=== PATIENT | male | born 1990 | race Caucasian/White ===

== ENCOUNTER 2021-02-05 23:44 | Emergency (ER) | payer BC, SELFPAY ==
--- NOTE | ~2021-02-05 | XR_ITS ---
EXAMINATION: XR chest 1V portable DATE: 02/06/2021 00:37 INDICATION: Chest pain TECHNIQUE: frontal view of the chest was obtained. COMPARISON: None FINDINGS: Lung volumes are decreased. No focal airspace opacities, pulmonary edema, pleural effusion or pneumot horax. The cardiomediastinal silhouette is within normal limits for AP technique. Visualized bones an d soft tissues are unremarkable. IMPRESSION: 1. No acute cardiopulmonary disease. Reviewed, dictated and finalized at location A.
[2021-02-05 23:45] VITALS: PULSE 100
[2021-02-06 00:20] LABS: Basophils Absolute Auto 0.03 K/mm3 (0.00-0.10); Basophils Percent Auto 0.3 % (0.0-1.0); Eosinophils Absolute Auto 0.06 K/mm3 (0.02-0.50); Eosinophils Percent Auto 0.5 % (1.0-6.0); Hematocrit 43.1 % (40.0-54.0); Hemoglobin 14.4 g/dL (14.0-18.0); Immature Granulocyte Absolute 0.04 K/mm3 (0.00-0.00); Immature Granulocyte Percent A 0.4 % (0.0-0.0); Lymphocytes Absolute Auto 3.39 K/mm3 (1.10-4.50); Mean Corpuscular HGB Conc 33.4 g/dL (32.0-36.0); Mean Corpuscular Hemoglobin 27.2 pg (27.0-31.0); Mean Corpuscular Volume 81.3 fL (78.0-102.0); Mean Platelet Volume 12.1 fl (8.7-11.0); Monocytes Absolute Auto 0.48 K/mm3 (0.10-0.90); Monocytes Percent Auto 4.3 % (2.0-11.0); Neutrophils Absolute Auto 7.3 K/mm3 (1.7-7.2); Neutrophils Percent Auto 64.5 % (50.0-70.0); Platelet Count Result 228 K/mm3 (150-420); Red Cell Distribution Width 13.1 % (11.6-14.4); White Blood Count 11.3 K/mm3 (4.8-10.8)
[2021-02-06 00:29] VITALS: BP 160/97; PULSE 103; RESP 20; TEMP 35.8; O2SAT 99
--- NOTE | 2021-02-06 00:29 | ED.GENADULT ---
HPI - General Adult General Chief complaint: Chest Pain Stated complaint: chest pain Source: patient Mode of arrival: ambulatory Limitations: no limitations History of Present Illness HPI narrative: Kurt is a 30M with a PMH of obesity and a strong family history of early cardiac disease that presented to the ED with chest pain. He started to have a squeezing pain in his left chest into his shoulder an arm that waxes and wanes. It started when he was lying in bed. It was also associated with some anxiety and lightheadedness but no syncope, nausea, vomiting, or shortness of breath. Related Data Home Medications Medication Instructions Recorded Confirmed No Home Medications 02/06/21 02/06/21 Allergies Allergy/AdvReac Type Severity Reaction Status Date / Time Penicillins Allergy Unknown Verified 02/06/21 00:38 Review of Systems Constitutional: Constitutional: Reports no additional constitutional complaints Eyes: Eyes: Reports no additional eye complaints ENT: Reports system reviewed and no additional complaints, except as documented Cardiovascular: Cardiovascular: Reports as per HPI Respiratory: Respiratory: Reports no additional respiratory complaints Gastrointestinal: Gastrointestinal: Reports no additional gastrointestinal complaints Genitourinary: Genitourinary: Reports no additional male genitourinary complaints Musculoskeletal: Musculoskeletal: Reports no additional musculoskeletal complaints Integumentary/Breasts: Skin/Breast: Reports system reviewed and no additional complaints, except as docu Neurologic: Reports system reviewed and no additional complaints, except as documented Psychiatric: Psychiatric: Reports no additional psychiatric complaints Endocrine: Comments: admits anxiety with hospitals Hematologic/Lymphatic: Hematologic/Lymphatic: Reports no additional hematologic/lymphatic complaints Allergic/Immunologic: Allergic/Immunologic: Reports no additional allergic/immunologic complaints Exam Const: General: no acute distress and alert Nutritional Appearance: well nourished Orientation/consciousness: patient oriented x3 Limitations: No altered mental status HENMT: Head: normal to inspection Other: atraumatic Eyes: Conjunctivae: conjunctivae normal Pupils: Equal, round and reactive pupils present Neck: Neck: normal visual inspection Chest: Chest palpation & inspection: normal inspection of the chest Resp: Effort & Inspection: normal respiratory effort, not labored and not tachypneic Auscultation: clear to auscultation bilaterally Cardio: Rate: tachycardic Rhythm: regular rhythm Heart sounds: no murmurs GI: Inspection: non-distended GI Palp: Yes Soft to palpation, No Tenderness to palpation present (GI) and No Guarding due to palpation present (GI) Skin: General skin exam: normal color Rashes: no rashes Neuro: General: patient oriented x3, moves all extremities and CN's II-XI intact bilaterally Extrem: General: normal to inspection Psych: Appearance: grossly normal Mental Status: mental status grossly normal Course Course Emergency Course: Kurt was evaluated and given aspirin and nitro. He was also very anxious so he was given ativan which could be contributing to his tachycardia. Ordered labs, CXR and EKG. EKG showed sinus tachycardia at 119, normal axis, no ectopy but flattened T-waves in the lateral leads Pain spontaneously resolved so nitro was not given. Labs were largely unremarkable. HEART score of 2, will repeat troponin at 3 hours and discharge if normal. repeat troponin was wnl. Vital Signs Vital signs: Vital Signs Pulse Rate 100 02/05/21 23:45 Temperature 97.9 F 02/06/21 03:25 Pulse Rate 79 02/06/21 03:25 Respiratory Rate 20 02/06/21 03:25 Blood Pressure 160/90 H 02/06/21 03:25 Pulse Oximetry 96 02/06/21 03:25 Medical Decision Making Vital Signs Vital Signs: Vital Signs Pulse Rate 100 02/05/21 23:45
[2021-02-06] MEDS: ASPIRIN 81 MG CHEWABLE TABLET 324 MG PO (00:36)
[2021-02-06] MEDS: LORazepam INJ (*CRX) 2 MG/ML VIAL 0.5 MG IV PUSH (00:37)
--- NOTE | 2021-02-06 00:41 | ECG_ITS ---
Measurements Intervals [place] Rate: 119 P: 19 [place]: 181 QRS: 13 QRSD: 99 T: 95 QT: 419 QTc: 590 Interpretive Statements SINUS TACHYCARDIA INCOMPLETE RIGHT BUNDLE BRANCH BLOCK BORDERLINE ST-T WAVE ABNORMALITY- DIFFUSE LEADS BASELINE ARTIFACT- I, II, III, AVF ABNORMAL ECG Electronically Signed On 02-06-2021 8:25:00 CDT by Oliver Latham D.O.
[2021-02-06 00:52] LABS: Prothrombin Time 10.3 Seconds (9.50-12.10)
[2021-02-06 00:54] LABS: Alanine Aminotransferase 41 U/L (16-63); Albumin Level 3.3 g/dL (3.4-5.0); Alkaline Phosphatase 62 U/L (46-116); Anion Gap 11 mmol/L (8-16); Aspartate Amino Transferase 14 U/L (15-37); Bilirubin,Total 0.3 mg/dL (0.00-1.00); Blood Urea Nitrogen 18 mg/dL (7-18); Calcium 8.4 mg/dL (8.5-10.1); Carbon Dioxide 25 mmol/L (21-32); Chloride 104 mmol/L (98-108); Estimated CRCL calculation 134 ml/min; Estimated Glomerular Filt Rate > 60; Glucose 172 mg/dL (70-99); NT Pro B Type Natriuretic Pept 16 pg/mL (0-125); Osmolality Calculated 295 mOsm/kg (285-295); Potassium 3.4 mmol/L (3.5-5.1); Sodium 140 mmol/L (136-145); Total Protein 7.2 g/dL (6.4-8.2)
[2021-02-06 00:58] LABS: Thyroid Stimulating Hormone 2.08 uIU/mL (0.36-3.74); Troponin I 7.4 ng/L (0.00-60.4)
--- NOTE | 2021-02-06 01:40 | PC.NURSE ---
Pt. sleeping, VSS, mon NSR.
[2021-02-06 03:18] LABS: Troponin I 5.9 ng/L (0.00-60.4)
[2021-02-06 03:25] VITALS: BP 160/90; PULSE 79; RESP 20; TEMP 36.6; O2SAT 96
== END 2021-02-06 03:32 | disposition home or self-care (01) ==
PROVIDERS: Emergency Provider Family Medicine
DX: R07.9 Chest pain, unspecified (principal)
CPT/HCPCS: 36415; 71045; 80053; 83880; 84443; 84484; 85025; 85610; 93005; 96374; 99283; 99284; A9270; J2060

== ENCOUNTER 2021-02-19 23:21 | Emergency (ER) | payer BC, SELFPAY ==
[2021-02-19 23:25] VITALS: BP 142/106; PULSE 99; RESP 20; TEMP 36.6; O2SAT 99
--- NOTE | 2021-02-19 23:35 | ECG_ITS ---
Measurements Intervals [place] Rate: 94 P: 3 TX: 179 QRS: 7 QRSD: 92 T: 114 QT: 324 QTc: 406 Interpretive Statements SINUS RHYTHM INCOMPLETE RIGHT BUNDLE BRANCH BLOCK CONSIDER INFERIOR INFARCT, AGE INDETERMINATE BORDERLINE ST-T WAVE ABNORMALITY- LAT/HIGH LAT LEADS BASELINE ARTIFACT- V1 ABNORMAL ECG Electronically Signed On 02-20-2021 17:11:56 CDT by Oliver Latham D.O.
--- NOTE | 2021-02-19 23:47 | ED.CHESTPAIN ---
HPI - Chest Pain General Chief Complaint: Dizziness Stated Complaint: Dizzy Time Seen by Provider: 02/19/21 23:56 Source: patient Mode of arrival: ambulatory Limitations: no limitations History of Present Illness HPI narrative: 30-year-old man comes in today complaining of sudden onset anxiety and left-sided chest pain that he describes as aching that radiates to his shoulder and arm on the left. he states he was having dizziness and lightheadedness swelling in bed. He became anxious afterwards. Patient states that he has had no nausea, vomiting, syncope, shortness of breath, sweating, cough, fever or palpitations. Patient was recently laid off from his job. patient's states that he had some lower extremity edema that has improved over last 2 weeks. MD complaint: chest pain Onset (ago): hour(s) (1) Timing of current episode: constant and still present Onset: during rest Pain location: left chest Pain radiation: left arm Severity: moderate Quality: aching Relieving factors: nothing Exacerbating factors: nothing Treatment prior to arrival: aspirin ( Daily 81 mg) Risk Factors Coronary artery disease risk factors: none Thoracic aortic dissection risk factors: none Related Data Home Medications Medication Instructions Recorded Confirmed buspirone 7.5 mg PO DAILY 02/20/21 02/20/21 lisinopril 10 mg PO DAILY 02/20/21 02/20/21 Allergies Allergy/AdvReac Type Severity Reaction Status Date / Time Penicillins Allergy Unknown Verified 02/06/21 00:38 Review of Systems Review of Systems: All systems reviewed & are unremarkable except as noted in HPI and below Constitutional: Constitutional: Denies chills, Denies fever(s) and Denies weakness Eyes: Eyes: Denies change in vision and Denies photophobia ENT: Denies dysphagia, Denies nasal congestion and Denies sore throat Cardiovascular: Cardiovascular: Reports chest pain and Reports radiating jaw, neck or arm pain Respiratory: Respiratory: Denies cough, Denies dyspnea and Denies wheezing Gastrointestinal: Gastrointestinal: Denies abdominal pain, Denies nausea and Denies vomiting Genitourinary: Genitourinary: Denies hematuria, Denies dysuria and Denies urinary frequency Musculoskeletal: Musculoskeletal: Denies arthralgias and Denies joint swelling Integumentary/Breasts: Skin/Breast: Denies pruritus, Denies erythema and Denies rash Neurologic: Denies vertigo, Reports dizziness, Denies syncope, Denies focal weakness and Denies numbness Endocrine: Endocrine: Denies polydipsia and Denies polyuria Hematologic/Lymphatic: Hematologic/Lymphatic: Denies easy bleeding and Denies easy bruising Allergic/Immunologic: Allergic/Immunologic: Denies lip swelling and Denies throat swelling PMFSH Surgical History Surgical History (Updated 02/20/21 @ 00:47 by Rajat Hendricks MD) S/P cholecystectomy Social History Social History (Updated 02/20/21 @ 00:48 by Rajat Hendricks MD) Social History: Patient drinks mountain dew but denies energy drinks of any kind. Tobacco type: smokeless tobacco Alcohol intake: former Substance use: former Living arrangements: with family Exam Const: General: alert Nutritional Appearance: obese Orientation/consciousness: patient oriented x3 Limitations: no limitations Other: Anxious Eyes: Conjunctivae: conjunctivae normal Pupils: Equal, round and reactive pupils present EOM: EOMs intact bilaterally Resp: Effort & Inspection: normal respiratory effort and not labored Auscultation: clear to auscultation bilaterally, no rales, no rhonchi and no wheezes Cardio: Rate: regular rate Rhythm: regular rhythm Heart sounds: no murmurs Skin: General skin exam: normal color, no jaundice and no pallor Rashes: no rashes Neuro: General: patient oriented x3, moves all extremities, no focal motor deficits and CN's II-XI intact bilaterally Speech: normal speech Gait exam (Neuro): Normal gait present Extrem: General: normal to i
[2021-02-20] MEDS: ASPIRIN 81 MG CHEWABLE TABLET 243 MG PO (00:15)
[2021-02-20] MEDS: NITROGLYCERIN SL 0.4 MG TABLET SUBLINGUAL (00:18)
[2021-02-20] MEDS: LORazepam (*CRX) 1 MG TABLET PO (00:20)
[2021-02-20 00:35] LABS: Basophils Absolute Auto 0.05 K/mm3 (0.00-0.10); Basophils Percent Auto 0.4 % (0.0-1.0); Eosinophils Percent Auto 0.7 % (1.0-6.0); Hematocrit 45.3 % (40.0-54.0); Hemoglobin 15.2 g/dL (14.0-18.0); Immature Granulocyte Absolute 0.07 K/mm3 (0.00-0.00); Immature Granulocyte Percent A 0.5 % (0.0-0.0); Lymphocytes Absolute Auto 3.75 K/mm3 (1.10-4.50); Lymphocytes Percent Auto 27.6 % (18.0-42.0); Mean Corpuscular HGB Conc 33.6 g/dL (32.0-36.0); Mean Corpuscular Hemoglobin 26.8 pg (27.0-31.0); Mean Corpuscular Volume 79.9 fL (78.0-102.0); Mean Platelet Volume 11.9 fl (8.7-11.0); Monocytes Absolute Auto 0.79 K/mm3 (0.10-0.90); Monocytes Percent Auto 5.8 % (2.0-11.0); Neutrophils Absolute Auto 8.9 K/mm3 (1.7-7.2); Platelet Count Result 249 K/mm3 (150-420); Red Blood Count 5.67 M/mm3 (4.70-6.10); Red Cell Distribution Width 13.1 % (11.6-14.4); White Blood Count 13.6 K/mm3 (4.8-10.8)
[2021-02-20 00:49] LABS: D Dimer 0.33 mg/L (0.19-0.50)
[2021-02-20 00:57] LABS: Alanine Aminotransferase 40 U/L (16-63); Albumin Level 3.6 g/dL (3.4-5.0); Alkaline Phosphatase 62 U/L (46-116); Anion Gap 12 mmol/L (8-16); Aspartate Amino Transferase 16 U/L (15-37); Bilirubin,Total 0.4 mg/dL (0.00-1.00); Blood Urea Nitrogen 20 mg/dL (7-18); Calcium 8.9 mg/dL (8.5-10.1); Carbon Dioxide 24 mmol/L (21-32); Chloride 102 mmol/L (98-108); Estimated CRCL calculation 169 ml/min; Estimated Glomerular Filt Rate > 60; Glucose 106 mg/dL (70-99); Osmolality Calculated 288 mOsm/kg (285-295); Potassium 3.9 mmol/L (3.5-5.1); Sodium 138 mmol/L (136-145); Total Protein 7.6 g/dL (6.4-8.2)
[2021-02-20 01:03] LABS: Troponin I 8.4 ng/L (0.00-60.4)
[2021-02-20 01:28] LABS: Add Urine Microscopic? NO; Appearance Urine Clear (Clear); Bilirubin Urine Negative (Negative); Blood Urine Negative (Negative); Color Urine Light Yellow (Yellow); Glucose Urine UA Negative (Negative); Ketones Urine Negative (Negative); Leukocyte Esterase Ur Negative LEU/UL (Negative); Nitrate Urine Negative (Negative); Protein Urine Negative (Negative); Urobilinogen Urine 0.2 mg/dL (0.2-1.0); pH Urine 5.5 (5.0-8.0)
[2021-02-20 01:34] LABS: Amphetamine Screen Urine Negative (Negative); Barbiturate Screen Urine Negative (Negative); Benzodiazepines Screen Urine Negative (Negative); Cannabinoid Screen Urine Negative (Negative); Cocaine Screen Urine Negative (Negative); Methadone Screen Urine Negative (Negative); Opiate Screen Urine Negative (Negative); Phencyclidine Screen Urine Negative (Negative)
[2021-02-20 01:50] VITALS: BP 128/72; PULSE 89; RESP 20; O2SAT 98
== END 2021-02-20 01:54 | disposition home or self-care (01) ==
PROVIDERS: Emergency Provider Emergency Medicine; PCP Nurse Practitioner
DX: R07.9 Chest pain, unspecified (principal); F41.9 Anxiety disorder, unspecified
CPT/HCPCS: 36415; 80053; 80307; 81003; 84484; 85025; 85380; 93005; 99283; 99284; A9270

== ENCOUNTER 2021-02-26 23:16 | Emergency (ER) | payer BC, SELFPAY ==
--- NOTE | ~2021-02-26 | XR_ITS ---
EXAMINATION: XR chest 2V DATE: 02/26/2021 23:37 INDICATION: Chest pain. TECHNIQUE: Frontal and lateral views of the chest were obtained on 3 radiographs. COMPARISON: Chest single view 02/06/2021 FINDINGS: The chest demonstrates clear lungs without pneumonia, pleural effusion, or pneumothorax. Th e heart size is normal. There are surgical clips in the abdomen. IMPRESSION: 1. No acute cardiopulmonary disease. Reviewed, dictated and finalized at location A.
[2021-02-26 23:16] VITALS: BP 172/95; PULSE 93; RESP 20; TEMP 36.3; O2SAT 98
--- NOTE | 2021-02-26 23:18 | ECG_ITS ---
Measurements Intervals [place] Rate: 98 P: 9 [place]: 189 QRS: 11 QRSD: 97 T: 50 QT: 321 QTc: 412 Interpretive Statements SINUS RHYTHM INCOMPLETE RIGHT BUNDLE BRANCH BLOCK LOW QRS VOLTAGE IN PRECORDIAL LEADS BORDERLINE R WAVE PROGRESSION, ANTERIOR LEADS CONSIDER INFERIOR INFARCT, AGE INDETERMINATE BASELINE WANDER- V1-V3 ABNORMAL ECG Electronically Signed On 02-27-2021 6:30:19 CDT by Oliver Latham D.O.
--- NOTE | 2021-02-26 23:23 | ED.CHESTPAIN ---
HPI - Chest Pain General Chief Complaint: Chest Pain Stated Complaint: Chest pain Time Seen by Provider: 02/26/21 23:23 Source: patient and RN notes reviewed Mode of arrival: EMS Limitations: no limitations History of Present Illness HPI narrative: 30-year-old male has been having chest pain intermittently all day. The worst it has been is 4/10. His chest pain has always been at rest. In the past few days when he is exerting himself he has not had chest pain. Initially he said he has not been short of breath with then his said that he called her and 1 time he was short of breath. He denies any nausea vomiting. He denies any diaphoresis. He has been having angina and has seen a guide travel. He is post be seen this week for an echo and may be scheduled for cardiac catheterization. He was supposed to get some nitroglycerin but it was sent to the wrong pharmacy. complaint: chest pain Onset (ago): day(s) (12) Timing of current episode: episodic Prior episodes: Yes Onset: during rest Pain location: substernal Pain radiation: left arm Pain scale (0-10): 4 Quality: tightness Relieving factors: nothing Exacerbating factors: nothing Associated symptoms: dyspnea ( only during 1 episode) Treatment prior to arrival: aspirin Risk Factors Coronary artery disease risk factors: smoking history (Quit), hypertension and family history of CAD before age 50 Related Data Home Medications Medication Instructions Recorded Confirmed buspirone 7.5 mg PO DAILY 02/20/21 02/20/21 lisinopril 10 mg PO DAILY 02/20/21 02/20/21 Allergies Allergy/AdvReac Type Severity Reaction Status Date / Time Penicillins Allergy Unknown Verified 02/06/21 00:38 Review of Systems Review of Systems: All systems reviewed & are unremarkable except as noted in HPI and below Constitutional: Constitutional: Denies body ache(s) and Denies chills Cardiovascular: Cardiovascular: Reports palpitations Respiratory: Respiratory: Reports no additional respiratory complaints Gastrointestinal: Gastrointestinal: Denies vomiting PMFSH Past Medical History Medical History (Updated 02/27/21 @ 00:26 by Nacho Leal MD) Anxiety Hypertension Morbid obesity Surgical History Surgical History S/P cholecystectomy Social History Social History (Updated 02/20/21 @ 00:48 by Rajat Hendricks MD) Social History: Patient drinks mountain dew but denies energy drinks of any kind. Tobacco type: smokeless tobacco Alcohol intake: former Substance use: former Exam Const: General: cooperative, healthy appearing, comfortable and no acute distress Nutritional Appearance: obese morbidly obese Orientation/consciousness: oriented to person and patient oriented x3 Limitations: no limitations HENMT: Head: normal to inspection Ears: external ears normal Face and sinus: normal facial exam Mouth: Yes moist mucous membranes Eyes: Conjunctivae: conjunctivae normal Pupils: Equal, round and reactive pupils present EOM: EOMs intact bilaterally Neck: Neck: normal visual inspection Resp: Effort & Inspection: normal respiratory effort Auscultation: clear to auscultation bilaterally Cardio: Rate: regular rate Rhythm: regular rhythm GI: GI Palp: Yes Soft to palpation and No Tenderness to palpation present (GI) Auscultation: normal bowel sounds Back/Spine/Pelvis: Cervical Spine: cervical ROM normal Thoracic/Lumbar Spine: thoraco-lumbar ROM normal Skin: General skin exam: normal color Rashes: no rashes Neuro: General: patient oriented x3, moves all extremities and no focal motor deficits Speech: normal speech Gait exam (Neuro): Normal gait present Extrem: General: normal to inspection and no clubbing, cyanosis or edema Psych: Appearance: grossly normal and well kempt Mental Status: mental status grossly normal Affect: normal affect Attitude: cooperative Thought content: Yes Normal thought [place]
[2021-02-26 23:47] LABS: Basophils Absolute Auto 0.04 K/mm3 (0.00-0.10); Basophils Percent Auto 0.3 % (0.0-1.0); Eosinophils Absolute Auto 0.06 K/mm3 (0.02-0.50); Eosinophils Percent Auto 0.5 % (1.0-6.0); Hematocrit 47.2 % (40.0-54.0); Hemoglobin 15.9 g/dL (14.0-18.0); Immature Granulocyte Absolute 0.04 K/mm3 (0.00-0.00); Immature Granulocyte Percent A 0.3 % (0.0-0.0); Lymphocytes Absolute Auto 3.22 K/mm3 (1.10-4.50); Lymphocytes Percent Auto 26.1 % (18.0-42.0); Mean Corpuscular HGB Conc 33.7 g/dL (32.0-36.0); Mean Corpuscular Hemoglobin 27.2 pg (27.0-31.0); Mean Corpuscular Volume 80.7 fL (78.0-102.0); Mean Platelet Volume 11.6 fl (8.7-11.0); Monocytes Absolute Auto 0.58 K/mm3 (0.10-0.90); Monocytes Percent Auto 4.7 % (2.0-11.0); Neutrophils Absolute Auto 8.4 K/mm3 (1.7-7.2); Neutrophils Percent Auto 68.1 % (50.0-70.0); Platelet Count Result 241 K/mm3 (150-420); Red Blood Count 5.85 M/mm3 (4.70-6.10); Red Cell Distribution Width 12.6 % (11.6-14.4); White Blood Count 12.3 K/mm3 (4.8-10.8)
[2021-02-26 23:53] VITALS: PULSE 98
[2021-02-27 00:08] LABS: Alanine Aminotransferase 33 U/L (16-63); Albumin Level 3.7 g/dL (3.4-5.0); Alkaline Phosphatase 61 U/L (46-116); Anion Gap 10 mmol/L (8-16); Aspartate Amino Transferase 14 U/L (15-37); Bilirubin,Total 0.3 mg/dL (0.00-1.00); Blood Urea Nitrogen 18 mg/dL (7-18); Calcium 9.2 mg/dL (8.5-10.1); Carbon Dioxide 25 mmol/L (21-32); Chloride 101 mmol/L (98-108); Estimated CRCL calculation 162 ml/min; Estimated Glomerular Filt Rate > 60; Glucose 98 mg/dL (70-99); Osmolality Calculated 283 mOsm/kg (285-295); Potassium 3.8 mmol/L (3.5-5.1); Sodium 136 mmol/L (136-145); Total Protein 7.7 g/dL (6.4-8.2); Troponin I 9.5 ng/L (0.00-60.4)
[2021-02-27] MEDS: ALPRAZolam (*CRX) 0.5 MG TABLET PO (00:08)
--- NOTE | 2021-02-27 00:08 | PC.NURSE ---
[id number] female in room came to desk , stating pt feels like he is having a panic attack. pt states heart is racing . reassurrance given. erp notified of same.
[2021-02-27 00:45] VITALS: BP 138/81; PULSE 90; RESP 20; TEMP 36.9; O2SAT 97
== END 2021-02-27 00:30 | disposition home or self-care (01) ==
PROVIDERS: Emergency Provider Emergency Medicine; PCP Nurse Practitioner
DX: I20.8 Other forms of angina pectoris (principal)
CPT/HCPCS: 36415; 71046; 80053; 83735; 84484; 85025; 93005; 99283; 99284; A9270

== ENCOUNTER 2022-02-19 17:45 | Emergency (ER) | payer SELFPAY ==
--- NOTE | ~2022-02-19 | XR_ITS ---
EXAM: XR ankle LT min 3V DATE: 02/19/2022 18:15 HISTORY: left ankle pain and a sprain. lateral portion . COMPARISON: None available. FINDINGS: Normal mineralization. No fracture or dislocation. No lytic or blastic lesion. Degenerativ e tibiotalar and midfoot changes. Plantar and Achilles enthesopathy. No erosion or periosteal change. Soft tissues within normal limits. IMPRESSION: No acute osseous finding in the left ankle. Reviewed, dictated and finalized at location K.
--- NOTE | 2022-02-19 18:15 | ED.GENADULT ---
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 this morning whereby he twisted his left ankle and felt a popping sound. He has been ambulatory since that time but with significant difficulty secondary to pain of the left ankle. No falls. No nausea or vomiting. No back pain or neck pain or headache. No motor or sensory deficits. Able to walk with a limp. He has not taken any oral pain medications for this since the event. Comorbidities include anxiety disorder, obesity, and hypertension. Related Data Home Medications Medication Instructions Recorded Confirmed lisinopril 10 mg tablet 20 mg PO DAILY 02/20/21 02/19/22 hydroxyzine HCl 25 mg tablet 1 tablet PO DAILY 02/19/22 02/19/22 Allergies Allergy/AdvReac Type Severity Reaction Status Date / Time Penicillins Allergy Unknown Verified 02/06/21 00:38 Review of Systems Review of Systems: All systems reviewed & are unremarkable except as noted in HPI and below Constitutional: Constitutional: Reports no additional constitutional complaints, Denies anorexia, Denies body ache(s), Denies chills, Denies excessive sweating, Denies fatigue, Denies fever(s), Denies frequent falls, Denies headache(s), Denies malaise and Denies poor appetite Eyes: Eyes: Reports no additional eye complaints, Denies blurry vision, Denies change in vision, Denies irritation, Denies itchy eyes and Denies photophobia ENT: Reports system reviewed and no additional complaints, except as documented, Reports Normal hearing present, Denies change in voice, Denies dysphagia, Denies vertigo, Denies dizziness, Denies ear discharge, Denies headache(s), Denies hearing loss, Denies hoarseness, Denies nasal congestion, Denies neck pain, Denies sinus pressure, Denies sore throat and Denies throat swelling Cardiovascular: Cardiovascular: Reports no additional cardiovascular complaints, Denies chest pain, Denies syncope, Denies rapid heart rate, Denies irregular heart rhythm, Denies leg edema, Denies dyspnea and Denies slow heart rate Respiratory: Respiratory: Reports no additional respiratory complaints, Denies cough, Denies dyspnea, Denies stridor and Denies wheezing Gastrointestinal: Gastrointestinal: Reports no additional gastrointestinal complaints, Denies abdominal pain, Denies melena, Denies hematochezia, Denies dysphagia, Denies diarrhea, Denies nausea and Denies vomiting Genitourinary: Genitourinary: Denies hematuria, Denies oliguria, Denies dysuria, Denies flank pain, Denies urinary frequency and Denies urinary urgency Musculoskeletal: Musculoskeletal: Reports no additional musculoskeletal complaints, Reports abnormal gait (secondary to pain in the left ankle), Denies back pain, Denies myalgias, Reports arthralgias (in left ankle), Reports joint swelling (in left ankle), Reports limited range of motion (left ankle), Denies muscle cramps, Denies muscle weakness, Denies neck pain and Denies numbness Integumentary/Breasts: Skin/Breast: Reports system reviewed and no additional complaints, except as docu, Denies breast pain, Denies change in pigmentation, Denies pruritus, Denies erythema and Denies wounds Neurologic: Reports system reviewed and no additional complaints, except as documented, Reports Normal hearing present, Denies Abnormal speech present, Denies abnormal gait, Denies confusion, Denies vertigo, Denies dizziness, Denies syncope, Denies frequent falls, Denies headache(s), Denies focal weakness, Denies numbness and Denies paresthesias Psychiatric: Psychiatric: Reports no additional psychiatric complaints and Denies confusion Endocrine: Endocrine: Reports no additional endocrine complaints, Denies cold intolerance, Denies excessive sweating, Denies fatigue and Denies heat intolerance Hematologic/Lympha
--- NOTE | 2022-02-19 18:30 | PC.NURSE ---
1800 pt to xray from [facility]
[2022-02-19 19:00] VITALS: BP 134/70; PULSE 108; RESP 20; TEMP 36.4; O2SAT 98
[2022-02-19] MEDS: IBUPROFEN 400 MG TABLET 800 MG PO (19:10)
[2022-02-19] MEDS: ACETAMINOPHEN 325 MG TABLET 650 MG PO (19:11)
[2022-02-19] MEDS: HYDROcodone/acetaminophen (*CRX) 5-325 MG TABLET 1 TAB PO (19:20)
[2022-02-19 19:31] VITALS: BP 138/74; PULSE 100; RESP 18; O2SAT 99
== END 2022-02-19 19:33 | disposition home or self-care (01) ==
PROVIDERS: Emergency Provider Emergency Medicine; PCP Nurse Practitioner
DX: S93.402A Sprain of unspecified ligament of left ankle, initial encounter (principal)
CPT/HCPCS: 73610; 99283; A9270

== ENCOUNTER 2022-11-08 14:05 | Outpatient (CLI) | payer BC, SELFPAY ==
[2022-11-08 14:21] LABS: Hemoglobin 15.7 g/dL (14.0-18.0); Mean Corpuscular HGB Conc 32.7 g/dL (32.0-36.0); Mean Corpuscular Hemoglobin 26.4 pg (27.0-31.0); Mean Corpuscular Volume 80.8 fL (78.0-102.0); Mean Platelet Volume 11.6 fl (8.7-11.0); Platelet Count Result 230 K/mm3 (150-420); Red Blood Count 5.94 M/mm3 (4.70-6.10); Red Cell Distribution Width 13.3 % (11.6-14.4); White Blood Count 10.4 K/mm3 (4.8-10.8)
[2022-11-08 15:10] LABS: Alanine Aminotransferase 56 U/L (16-63); Albumin Level 3.7 g/dL (3.4-5.0); Alkaline Phosphatase 79 U/L (46-116); Anion Gap 7 mmol/L (8-16); Aspartate Amino Transferase 29 U/L (15-37); Bilirubin,Total 0.5 mg/dL (0.00-1.00); Blood Urea Nitrogen 11 mg/dL (7-18); Calcium 9.2 mg/dL (8.5-10.1); Carbon Dioxide 30 mmol/L (21-32); Chloride 105 mmol/L (98-108); Cholesterol 163 mg/dL (0-200); Estimated Glomerular Filt Rate > 60; Glucose 104 mg/dL (70-99); HDL Direct 29 mg/dL (40-60); LDL Cholesterol Calculated 88 mg/dL (<130); Osmolality Calculated 293 mOsm/kg (285-295); Potassium 4.5 mmol/L (3.5-5.1); Sodium 142 mmol/L (136-145); Total Protein 7.5 g/dL (6.4-8.2); Triglycerides 228 mg/dL (0-150)
== END 2022-11-08 14:06 | disposition home or self-care (01) ==
LOC: CHSLAB 14:07
PROVIDERS: PCP Family Medicine; Visit Provider Family Medicine
DX: Z00.00 Encounter for general adult medical examination without abnormal findings (principal)
CPT/HCPCS: 36415; 80053; 80061; 85027

== ENCOUNTER 2022-11-19 17:03 | Outpatient (RCR) | payer BC, SELFPAY ==
--- NOTE | 2022-11-19 18:01 | PTOPEVAL1 ---
Assessment and note entered by Evelyn Lord, PT Evaluation Information Assessment Status Evaluation Diagnosis Sciatica Onset 11/08/22 Subjective Information Kurt Patel reports he started having low back pain about 3 months ago. He reports he has had off and on pain for several years with no clear trigger that started pain. He reports pain is on the left > right lower back and buttock. He also notes that his left thigh will go numb with sitting for a long period. He has been able to treat the pain in the past with vicodin and muscle relaxers. This time, he was prescribed Meloxicam and cyclobenzipene with no change in symptoms. He was also referred to PT. 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 Reported Pain Level Pain Score 8: Self Report Assessment PT Clinical Summary Kurt Patel presents with left low back and buttock pain with an onset approximately 3 months ago. He has had low back pain in the past but it usually subsides with medication. He has difficulty with lifting, prolonged sitting, and prolonged standing which causes difficulty with his ability to work as an EMT. He objectively demonstrates decreased and painful lumbar AROM into flexion and left lateral flexion; decreased core strength; positive left straight leg raise test; decreased hamstring flexibility; and decreased functional abilities. He has decreased symptoms with lumbar extension. He will benefit from skilled PT to address these physical and functional limitations and return him to his PLOF. Plan of Care Interventions Electrical Stimulation,Hot Pack/Cold Pack,Manual Therapy,Mechanical Traction,Neuro Re-education, Patient/Caregiver Educati,Therapeutic Activities, Therapeutic Exercise PT Services Indicated Yes Treatment Frequency and 3 times a week for 12 visits Duration These treatments will address the objective and functional deficits as defined above. The patient will be advanced safely and appropriately in order for the patient to progress towards his/her prior level of function. Additional exercises will be introduced and as well as a comprehensive home exercise program upon discharge, if needed, ?to ensure carryover of functional gains achieved in the clinic. This treatment plan has been reviewed and agreement upon by the patient.
== END 2022-11-22 13:49 | disposition home or self-care (01) ==
LOC: CHSPT 17:03
PROVIDERS: PCP Family Medicine; Visit Provider Family Medicine
DX: M54.30 Sciatica, unspecified side (principal)
CPT/HCPCS: 97014; 97110; 97161; G0283

== ENCOUNTER 2023-01-02 13:40 | Outpatient (CLI) | payer BC, MEDICAID, SELFPAY ==
--- NOTE | ~2023-01-02 | XR_ITS ---
EXAMINATION: XR lumbar spine 2-3V DATE: 01/02/2023 13:59 INDICATION: Low back pain TECHNIQUE: Anteroposterior and lateral views of the lumbar spine, and cone-down lateral view of the l umbosacral junction were obtained. COMPARISON: None. FINDINGS: No fracture, dislocation, or subluxation. The vertebral body heights, alignment, and interv ertebral disc spaces are normal. The paravertebral soft tissues are unremarkable. Surgical clips in t he right upper quadrant are likely from prior cholecystectomy. IMPRESSION: 1. No acute osseous abnormality. Reviewed, dictated and finalized at location L.
== END 2023-01-02 13:41 | disposition home or self-care (01) ==
LOC: CHSIMG 13:42
PROVIDERS: PCP Family Medicine; Visit Provider Nurse Practitioner Family
DX: G89.29 Other chronic pain (principal); M54.50 Low back pain, unspecified
CPT/HCPCS: 72100

== ENCOUNTER 2023-07-28 14:19 | Emergency (ER) | payer BC, SELFPAY ==
--- NOTE | ~2023-07-28 | XR_ITS ---
XR hip RT min 3V w AP pelvis 07/28/2023 15:18 INDICATION: Pelvic pain PROCEDURE: AP pelvis and 2 views right hip COMPARISON: No prior studies for comparison. FINDINGS: Fracture, dislocation or subluxation is not identified. Sacral foramen are symmetric. The s oft tissues appear within normal limits. No foreign bodies are identified. IMPRESSION: 1: NO ACUTE BONE OR JOINT ABNORMALITY IDENTIFIED. Reviewed, dictated and finalized at location B. ING ASSOCIATE
--- NOTE | ~2023-07-28 | XR_ITS ---
XR sacrum coccyx min 2V 07/28/2023 15:18 Indication: Back pain after trauma Procedure: 3 views sacrum/coccyx Comparison: 07/28/2023 Findings: Sacral foramen are symmetric. No fracture or traumatic malalignment. Sacroiliac joints are symmetric. Impression: 1: No acute abnormality of the sacrum/coccyx. Reviewed, dictated and finalized at location B. ION HOUSEKEEPER Impression: 1: No acute abnormality of the sacrum/coccyx.
--- NOTE | ~2023-07-28 | XR_ITS ---
XR lumbar spine 2-3V 07/28/2023 15:18 Indication: Low back pain after fall Procedure: 3 views lumbar spine Comparison: 01/02/2023 Findings: Mild levocurvature of the lumbar spine. Vertebral body heights are maintained. Pedicles int act. Sacral foramen are symmetric. There are cholecystectomy clips. Impression: 1: No acute abnormality of the lumbar spine. Reviewed, dictated and finalized at location B. TY DIRECTOR WELFARE Impression: 1: No acute abnormality of the lumbar spine.
[2023-07-28 14:23] VITALS: BP 193/94; PULSE 112; RESP 21; TEMP 37.1; O2SAT 100
[2023-07-28] MEDS: CYCLOBENZAPRINE HCL 10 MG TABLET PO (14:43)
[2023-07-28] MEDS: HYDROcodone/acetaminophen (*CRX) 5-325 MG TABLET 1 TAB PO (14:43)
--- NOTE | 2023-07-28 14:49 | ED.BACK ---
HPI - Back Pain/Injury General Chief Complaint: Back Pain/Injury Stated Complaint: lower back injury Time Seen by Provider: 07/28/23 14:26 Source: patient and EMS Mode of arrival: EMS Limitations: no limitations History of Present Illness HPI Narrative: 33 years old white male, morbidly obese presents to the ED By ambulance with pain at the lower back and tailbone and right hip after missing a step while going up stairs landed on the right hip, last night. He denies other injuries. Patient had meloxicam this morning.. Related Data Home Medications Medication Instructions Recorded Confirmed hydroxyzine HCl 25 mg tablet 25 mg PO DAILY PRN Anxiety 07/28/23 07/28/23 meloxicam 15 mg tablet 15 mg PO DAILY 07/28/23 07/28/23 Allergies Allergy/AdvReac Type Severity Reaction Status Date / Time Penicillins Allergy Unknown Verified 07/28/23 14:28 Review of Systems Review of Systems: All systems reviewed & are unremarkable except as noted in HPI and below PMFSH Past Medical History Medical History Anxiety Hypertension Morbid obesity Surgical History Surgical History S/P cholecystectomy Social History Social History Social History: Patient drinks mountain dew but denies energy drinks of any kind. Smoking status: Current every day smoker Tobacco type: cigarettes and smokeless tobacco Alcohol intake: former Substance use: former Living arrangements: with family Exam Narrative: General appearance: Well-developed, well-nourished Skin: Normal color Head: Normocephalic, nontraumatic Eyes: Clear conjunctiva ENT: Oropharynx normal, ears normal, nose normal Neck: Supple, nontender Chest and respiratory: Airway patent, no respiratory distress, no accessory muscle use Heart: Regular rate/rhythm Abdomen: Soft, nontender, no organomegaly, quiet bowel sounds Vascular: Normal peripheral pulses, normal capillary refill. Musculoskeletal: Diffuse tenderness along the lumbar spine, no bruises, no swelling or rash, slight limited range of motion of the right hip was diffuse tenderness. Neurologic: Alert and oriented ?3, BENEFITS SPECIALIST RECRUITER is normal as tested, no gross motor deficit Course Vital Signs Vital signs: Vital Signs Temperature 37.1 C 07/28/23 14:23 Pulse Rate 112 H 07/28/23 14:23 Respiratory Rate 21 H 07/28/23 14:23 Blood Pressure 193/94 H 07/28/23 14:23 Pulse Oximetry 100 07/28/23 14:23 Oxygen Delivery Room Air 07/28/23 14:23 Temperature 37.1 C 07/28/23 14:23 Pulse Rate 112 H 07/28/23 14:23 Respiratory Rate 21 H 07/28/23 14:23 Blood Pressure 193/94 H 07/28/23 14:23 Pulse Oximetry 100 07/28/23 14:23 Oxygen Delivery Room Air 07/28/23 14:23 MDM - Back Pain/Injury MDM Narrative Medical decision making narrative: patient missed a step landed on the right hip last night Physical examination as above, vital signs show blood pressure of 193/94, heart rate of 112 Differential diagnosis contusion, sprain, strain, fracture Workup today included x-ray of the lumbar spine, sacrum and coccyx, right hip and pelvis which showed no acute abnormalities. Contusion is my concern. Patient currently on meloxicam 15 mg once a day, my recommendation to continue meloxicam plus Flexeril and lower back physical therapy and exercise. Differential Diagnosis Differential diagnosis: Likely other ( Hip contusion, lower back contusion) Imaging Data Radiologist's impression: Impressions Lumbar Spine X-Ray 07/28/23 15:20 Impression: 1: No acute abnor
[2023-07-28 15:59] VITALS: BP 184/82; PULSE 86; RESP 22; TEMP 37.2; O2SAT 98
[2023-07-28 16:08] VITALS: BP 177/102; PULSE 84; RESP 20; TEMP 37.1; O2SAT 97
== END 2023-07-28 16:11 | disposition home or self-care (01) ==
PROVIDERS: Emergency Provider Emergency Medicine; PCP Family Medicine
DX: M54.50 Low back pain, unspecified (principal); S70.01XA Contusion of right hip, initial encounter; I10 Essential (primary) hypertension; F17.210 Nicotine dependence, cigarettes, uncomplicated; Z79.891 Long term (current) use of opiate analgesic; W10.9XXA Fall (on) (from) unspecified stairs and steps, initial encounter
CPT/HCPCS: 72100; 72220; 73502; 99284; A9270

== ENCOUNTER 2023-08-26 07:32 | Outpatient (CLI) | payer BC, MEDICAID, SELFPAY ==
[2023-08-26 07:56] LABS: Hemoglobin A1C 5.5 % (<5.7)
[2023-08-31 12:31] LABS: Testosterone Free 32.9 pg/mL (35.0-155.0); Testosterone Total 140 ng/dL (250-1100)
== END 2023-08-26 07:33 | disposition home or self-care (01) ==
LOC: CHSLAB 07:35
PROVIDERS: PCP Family Medicine; Visit Provider Family Medicine
DX: I10 Essential (primary) hypertension (principal); E11.9 Type 2 diabetes mellitus without complications
CPT/HCPCS: 36415; 83036; 84402; 84403

== ENCOUNTER 2024-09-15 09:54 | Outpatient (RCR) | payer BC, SELFPAY ==
--- NOTE | 2024-09-15 15:14 | OPREHPOC ---
Outpatient Therapy Plan of Care This is a Multidisciplinary Plan of Care that may contain components documented by all disciplines (PT, OT, and ST.) PT Problem 1 PT Problem #1 Knowledge Deficit PT Goal 1 Goal / Goal Update Independent with HEP Target Visit 2 PT Problem 2 PT Problem #2 Pain PT Goal 1 Goal / Goal Update 1. Improve pain to no more than 2 at rest. 2. Improve back index score to 20 for improved functional mobility and work activities. Target Visit 12 PT Problem 3 PT Problem #3 Impaired Range of Motion PT Goal 1 Goal / Goal Update 1. Pt to improve back flexion ROM to 70degrees 2. Improve thoracic joint mobility to 3/6 normal Target Visit 12 PT Problem 4 PT Problem #4 Impaired Strength PT Goal 1 Goal / Goal Update Improve gross shoulder strength to 4+/5 for improved mechanics and postural awareness. Target Visit 12
--- NOTE | 2024-09-15 15:14 | PTOPEVAL1 ---
Assessment and note entered by Winifred Ozuna, PT Evaluation Information Assessment Status Evaluation Diagnosis Pain in thoracic spine ICD-10 Condition Codes (PT) Pain in Thoracic Spine M54.6 Onset 08/15/24 Subjective Information Pt reports onset of thoracic region back pain one month ago when he was outside at work and thinks he may have twisted his back the wrong way. Pain is shooting in nature and radiates from central thoracic region laterally to the left side. Pain is constantly present at 5/10 and increases to 8/ 10 with bending forward vs backward, twisting, coughing/sneezing and changing positions. 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 His sleep is occasionally interrupted due to pain and he's tried ice/heat and lidocaine patches with some relief however the pain never completely goes away. Reported Pain Level Pain Score 5: Self Report Assessment PT Clinical Summary Mr. Patel is a 34 year old male presenting to physical therapy with complaints of thoracic region pain. His pain is sharp/shooting in nature and radiates laterally along his L side. His pain has been ongoing for about a month and has mildly interfered with his sleep and ability to participate in work activities despite toughing it out. He demonstrates impaired strength grossly throughout the neck and shoulders along with tenderness to palpation with central PA along the thoracic spine and radiating pain laterally to his left side. Skilled PT services indicated to reduce pain, improve joint mobility and strength to return to prior level of function and normal work activities without pain. Plan of Care Interventions Electrical Stimulation,Gait Training,Hot Pack/Cold Pack,Manual Therapy,Mechanical Traction,Neuro Re- education,Patient/Caregiver Education,Therapeutic Activities,Therapeutic Exercise,Self-Care/Home Management PT Services Indicated Yes Treatment Frequency and 2x/week for 12 visits Duration These treatments will address the objective and functional deficits as defined above. The patient will be advanced safely and appropriately in order for the patient to progress towards his/her prior level of function. Additional exercises will be introduced and as well as a comprehensive home exercise program upon discharge, if needed, ?to ensure carryover of functional gains achieved in the clinic. This treatment plan has been reviewed and agreement upon by the patient.
--- NOTE | 2024-12-10 13:25 | PTOPDC ---
Assessment and note entered by Winifred Ozuna, PT Evaluation Information Assessment Status Discharge - Pt Not Present Diagnosis Pain in thoracic spine ICD-10 Condition Codes (PT) Pain in Thoracic Spine M54.6 Onset 08/15/24 Subjective Information Pt reports onset of thoracic region back pain one month ago when he was outside at work and thinks he may have twisted his back the wrong way. Pain is shooting in nature and radiates from central thoracic region laterally to the left side. Pain is constantly present at 5/10 and increases to 8/ 10 with bending forward vs backward, twisting, coughing/sneezing and changing positions. 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 His sleep is occasionally interrupted due to pain and he's tried ice/heat and lidocaine patches with some relief however the pain never completely goes away. Assessment PT Clinical Summary Mr. Kurt Patel has attended 2 total skilled physical therapy visits addressing thoracic back pain. He has not attended physical therapy since September, was contacted and did not answer. He will be discharged from PT at this time. Plan of Care PT Services Indicated No
== END 2024-09-28 20:00 | disposition home or self-care (01) ==
LOC: CHSPT 09:54
PROVIDERS: Visit Provider Nurse Practitioner Family
DX: M54.6 Pain in thoracic spine (principal)
CPT/HCPCS: 97014; 97110; 97140; 97150; 97161; G0283

== ENCOUNTER 2024-09-28 10:37 | Outpatient (CLI) | payer BC, SELFPAY ==
[2024-09-28 10:53] LABS: Basophils Absolute Auto 0.06 K/mm3 (0.00-0.10); Basophils Percent Auto 0.7 % (0.0-1.0); Eosinophils Absolute Auto 0.14 K/mm3 (0.02-0.50); Eosinophils Percent Auto 1.6 % (1.0-6.0); Hematocrit 49.2 % (40.0-54.0); Hemoglobin 15.5 g/dL (14.0-18.0); Immature Granulocyte Absolute 0.03 K/mm3 (0.00-0.00); Immature Granulocyte Percent A 0.4 % (0.0-0.0); Lymphocytes Absolute Auto 1.82 K/mm3 (1.10-4.50); Lymphocytes Percent Auto 21.3 % (18.0-42.0); Mean Corpuscular HGB Conc 31.5 g/dL (32-36); Mean Corpuscular Hemoglobin 25.4 pg (27.0-31.0); Mean Corpuscular Volume 80.5 fL (78.0-102.0); Mean Platelet Volume 11.4 fl (8.7-11.0); Monocytes Absolute Auto 0.39 K/mm3 (0.10-0.90); Monocytes Percent Auto 4.6 % (2.0-11.0); Neutrophils Absolute Auto 6.09 K/mm3 (1.70-7.20); Neutrophils Percent Auto 71.4 % (50.0-70.0); Platelet Count Result 245 K/mm3 (150-420); Red Blood Count 6.11 M/mm3 (4.70-6.10); Red Cell Distribution Width 13.6 % (11.6-14.4); White Blood Count 8.5 K/mm3 (4.8-10.8)
[2024-09-28 11:09] LABS: Hemoglobin A1C 5.6 % (<5.7)
[2024-09-28 11:40] LABS: Alanine Aminotransferase 104 U/L (16-63); Albumin Level 3.9 g/dL (3.4-5.0); Alkaline Phosphatase 81 U/L (46-116); Anion Gap 7 mmol/L (4-12); Aspartate Amino Transferase 52 U/L (15-37); Bilirubin,Total 0.6 mg/dL (0.00-1.00); Blood Urea Nitrogen 6 mg/dL (7-18); Calcium 9.2 mg/dL (8.5-10.1); Carbon Dioxide 31 mmol/L (21-32); Chloride 102 mmol/L (98-108); Cholesterol 177 mg/dL (0-200); Estimated Glomerular Filt Rate > 60; Glucose 101 mg/dL (70-99); HDL Direct 29 mg/dL (40-60); LDL Cholesterol Calculated 98 mg/dL (<130); Osmolality Calculated 287 mOsm/kg (285-295); Potassium 4.5 mmol/L (3.5-5.1); Sodium 140 mmol/L (136-145); Total Protein 7.3 g/dL (6.4-8.2); Triglycerides 252 mg/dL (0-150)
[2024-09-28 11:50] LABS: Thyroid Stimulating Hormone Reflex 1.24 u/IU/mL (0.36-3.74)
[2024-09-29 18:48] LABS: Vitamin D 25 Hydroxy 8 ng/mL (30-100)
== END 2024-09-28 10:38 | disposition home or self-care (01) ==
PROVIDERS: PCP Nurse Practitioner Family; Visit Provider Nurse Practitioner Family
DX: Z00.00 Encounter for general adult medical examination without abnormal findings (principal); R53.82 Chronic fatigue, unspecified; R79.89 Other specified abnormal findings of blood chemistry
CPT/HCPCS: 36415; 80053; 80061; 82306; 83036; 84402; 84403; 84443; 85025